=== PATIENT | male | born 1985 | race African-American/Black ===

== ENCOUNTER 2018-11-24 10:20 | Emergency (ER) | payer OTHER ==
[~2018-11-24] VITALS: Ht 167.6 cm; Wt 106.6 kg
[2018-11-24 12:01] VITALS: BP 128/88
== END 2018-11-24 12:01 | disposition home or self-care (01) ==
LOC: ER 10:20
DX: D17.0 Benign lipomatous neoplasm of skin and subcutaneous tissue of head, face and neck (principal); J45.909 Unspecified asthma, uncomplicated; F17.210 Nicotine dependence, cigarettes, uncomplicated